=== PATIENT | male | born 1950 | race Caucasian/White ===

== ENCOUNTER 2024-10-05 17:26 | Inpatient (IN) | payer OTHER ==
[~2024-10-05] VITALS: Ht 188 cm; Wt 88.5 kg
[2024-10-05] MEDS ORDERED: LORAZEPAM 2 MG/1 ML VIAL ONE (17:43)
[2024-10-05] MEDS ORDERED: diphenhydrAMINE 50 MG/1 ML VIAL ONE (17:43)
[2024-10-05] MEDS ORDERED: HALOPERIDOL LACTATE 5 MG/1 ML VIAL ONE ×2 (17:44→19:39)
[2024-10-05] MEDS: diphenhydrAMINE 50 MG/1 ML VIAL IM ONE (17:51)
[2024-10-05] MEDS: LORAZEPAM 2 MG/1 ML VIAL IM ONE (17:51)
[2024-10-05] MEDS: HALOPERIDOL LACTATE 5 MG/1 ML VIAL IM ONE ×2 (17:51→19:48)
[2024-10-05 17:54] LABS: BASOPHILS % (AUTO) 0.8 % (0.0-2.0); EOSINOPHILS % (AUTO) 0.5 % (0.0-7.0); HEMATOCRIT 42.6 % (36.7-47.1); HEMOGLOBIN 14.1 g/dL (12.5-16.3); LYMPHOCYTES # (AUTO) 1.1 K/uL (0.8-4.8); LYMPHOCYTES % (AUTO) 19.2 % (20.5-51.5); MEAN CORPUSCULAR HEMOGLOBIN 29.8 uug (23.8-33.4); MEAN CORPUSCULAR HGB CONC 33 g/dL (32.5-36.3); MEAN CORPUSCULAR VOLUME 89.9 fL (73.0-96.2); MONOCYTES # (AUTO) 0.4 K/uL (0.1-1.30); MONOCYTES % (AUTO) 7.2 % (0.0-11.0); NEUTROPHILS # (AUTO) 4.3 K/uL (1.8-8.9); NEUTROPHILS % (AUTO) 72.3 % (38.5-71.5); PLATELET COUNT (AUTO) 260 K/uL (152-348); RED BLOOD CELL COUNT(AUTO) 4.74 MIL/uL (4.06-5.63); RED CELL DISTRIBUTION WIDTH 15.3 % (12.1-16.2); WHITE BLOOD COUNT (AUTO) 5.9 K/uL (3.6-10.2)
[2024-10-05 18:00] LABS: DIFFERENTIAL COMMENT 1
[2024-10-05 18:03] LABS: CALCIUM 9.1 mg/dL (8.5-10.1); CARBON DIOXIDE 30 mmol/L (21-32); CHLORIDE 105 mmol/L (98-107); GLUCOSE 124 mg/dL (74-106); POTASSIUM 4.1 mmol/L (3.5-5.1); SODIUM SERUM 141 mmol/L (136-145); UREA NITROGEN, BLOOD 14 mg/dL (7-18)
[2024-10-05] MEDS ORDERED: LORA-259 PO (23:59)
[2024-10-05] MEDS ORDERED: CHOL2000 PO (23:59)
[2024-10-05] MEDS ORDERED: ACET-3117 PO (23:59)
[2024-10-05] MEDS ORDERED: OLAN10TA73 PO (23:59)
[2024-10-05] MEDS ORDERED: THIA100T74 PO (23:59)
[2024-10-05] MEDS ORDERED: CARB100C9 PO (23:59)
[2024-10-05] MEDS ORDERED: CRAN450T9 PO (23:59)
[2024-10-05] MEDS ORDERED: ENOX40DI SQ (23:59)
[2024-10-05] MEDS ORDERED: CARB200C6 PO (23:59)
[2024-10-05] MEDS ORDERED: METO25TA6 PO (23:59)
[2024-10-05] MEDS ORDERED: CYAN-51 PO (23:59)
[2024-10-05] MEDS ORDERED: PANT40TA49 PO (23:59)
[2024-10-05] MEDS ORDERED: NITR50CA PO (23:59)
[2024-10-05] MEDS ORDERED: TAMS-3 PO (23:59)
[2024-10-05] MEDS ORDERED: BISA-79 PO (23:59)
[2024-10-05] MEDS ORDERED: CLOP75TA33 PO (23:59)
[2024-10-05] MEDS ORDERED: MAGN400C PO (23:59)
[2024-10-05] MEDS ORDERED: CALC300T4 PO (23:59)
[2024-10-06 00:15] VITALS: BP 129/75; TEMP 98.2; O2SAT 97
[2024-10-06] MEDS ORDERED: LORAZEPAM 1 MG TABLET PO PRN (00:15)
[2024-10-06] MEDS ORDERED: MAGNESIUM HYDROXIDE 30 ML LIQUID UDC PO PRN (00:15)
[2024-10-06] MEDS ORDERED: TEMAZEPAM 7.5 MG CAPSULE PO PRN (00:15)
[2024-10-06] MEDS ORDERED: MAG HYDROX/AL HYDROX/SIMETH 30 ML LIQUID UDC PO PRN (00:15)
[2024-10-06] MEDS: BLOOD SUGAR DIAGNOSTIC 1 EACH STRIP VI ONE (00:43)
[2024-10-06 08:12] VITALS: BP 110/67; TEMP 98; O2SAT 96
[2024-10-06] MEDS: LORAZEPAM 1 MG TABLET PO PRN (14:50)
[2024-10-06 16:14] VITALS: BP 105/74; TEMP 98.1; O2SAT 96
[2024-10-06] MEDS: DIVALPROEX 125 MG TABLET.DR PO SCH (18:03)
[2024-10-06 20:00] VITALS: BP 108/76; TEMP 97.2; O2SAT 100
[2024-10-06] MEDS: OLANZAPINE 2.5 MG TABLET PO SCH (20:08)
[2024-10-06] MEDS: TEMAZEPAM 7.5 MG CAPSULE PO PRN (22:31)
[2024-10-07 08:22] VITALS: BP 122/81; TEMP 97.1; O2SAT 100
[2024-10-07] MEDS ORDERED: Medication Not On Formulary EA (Cholecalciferol (Vitamin D3) (Vitamin D3) 1 CAP) PO SCH (09:00)
[2024-10-07] MEDS ORDERED: BISACODYL 5 MG TABLET.DR PO PRN (09:00)
[2024-10-07] MEDS: CHOLECALCIFEROL 1,000 UNIT TABLET PO SCH (09:33)
[2024-10-07] MEDS: THIAMINE HCL 100 MG TABLET PO SCH (09:34)
[2024-10-07] MEDS: CYANOCOBALAMIN 1,000 MCG TABLET PO SCH (09:34)
[2024-10-07] MEDS: CLOPIDOGREL 75 MG TABLET PO SCH (09:34)
[2024-10-07] MEDS: METOPROLOL TARTRATE 25 MG TABLET PO SCH (09:35)
[2024-10-07 09:41] LABS: CALCIUM 8.9 mg/dL (8.5-10.1); CARBON DIOXIDE 29 mmol/L (21-32); CHLORIDE 104 mmol/L (98-107); GLUCOSE 120 mg/dL (74-106); POTASSIUM 3.9 mmol/L (3.5-5.1); SODIUM SERUM 140 mmol/L (136-145); UREA NITROGEN, BLOOD 16 mg/dL (7-18)
[2024-10-07] MEDS: PANTOPRAZOLE SODIUM 40 MG TABLET.DR PO SCH (09:41)
[2024-10-07 16:20] VITALS: BP 111/74; TEMP 98; O2SAT 100
[2024-10-07 20:00] VITALS: BP 114/68; TEMP 98; O2SAT 98
[2024-10-07] MEDS: TAMSULOSIN HCL 0.4 MG CAP.SR.24H PO SCH (21:09)
[2024-10-07] MEDS: MAGNESIUM OXIDE 400 MG TABLET PO SCH (21:09)
[2024-10-08 08:18] VITALS: BP 135/80; TEMP 98; O2SAT 99
[2024-10-08] MEDS: DIVALPROEX 250 MG TABLET.DR PO SCH (09:16)
[2024-10-08 16:20] VITALS: BP 163/100; TEMP 97.3; O2SAT 100
[2024-10-08 17:26] VITALS: BP 149/96
[2024-10-08 20:00] VITALS: BP 100/60; TEMP 98.5; O2SAT 96
[2024-10-08] MEDS: OLANZAPINE 5 MG TABLET PO SCH (20:31)
[2024-10-09 10:20] VITALS: BP 122/81; TEMP 97.7; O2SAT 100
[2024-10-09 16:13] VITALS: BP 146/85; TEMP 97.4; O2SAT 98
[2024-10-09 19:53] VITALS: BP 143/68; TEMP 97.3; O2SAT 98
[2024-10-09] MEDS: ATORVASTATIN 10 MG TABLET PO SCH (20:49)
[2024-10-09 23:39] LABS: *BILIRUBIN,URIN NEGATIVE (NEGATIVE); *BLOOD, URINE NEGATIVE (NEGATIVE); *CLARITY,URINE SLIGHTLY CLOUDY (CLEAR); *COLOR,URINE YELLOW (YELLOW); *KETONES,URINE NEGATIVE (NEGATIVE); *PROTEIN,URINE NEGATIVE (NEGATIVE); *UROBILINOGEN,URINE 0.2 E.U./dl (NORMAL); LEUKOCYTE ESTERASE ,URINE 2+ (NEGATIVE); NITRITE, URINE POSITIVE (NEGATIVE); UGLUCOSE NEGATIVE (NEGATIVE)
[2024-10-09] MEDS: LORAZEPAM 0.5 MG TABLET PO PRN (23:53)
[2024-10-09 23:59] LABS: RBC,URINE 0-3 /HPF (0-3); WBC,URINE 50-80 /HPF (0-3)
[2024-10-10 00:01] LABS: BACTERIA,URINE MANY /HPF (NONE SEEN)
[2024-10-10 00:03] LABS: SQUAMOUS EPITHELIAL CELL,UR FEW /HPF (NONE SEEN)
[2024-10-10 08:14] VITALS: BP 105/45; TEMP 98.3; O2SAT 100
[2024-10-10] MEDS: NITROFURANTOIN/NITROFURAN MAC 100 MG CAPSULE PO SCH (11:06)
[2024-10-10] MEDS: ACETAMINOPHEN 325 MG TABLET PO PRN (13:12)
[2024-10-10 16:18] VITALS: BP 112/56; TEMP 97.5; O2SAT 100
[2024-10-10 20:00] VITALS: BP 109/72; TEMP 98; O2SAT 100
[2024-10-11 07:59] VITALS: BP 110/75; TEMP 98; O2SAT 99
[2024-10-11 08:31] VITALS: BP 110/75
== END 2024-10-11 11:30 | DRG 885 ==
LOC: ER 17:26 → GPS 10-06 00:10
PROVIDERS: ADMIT Psychiatry & Neurology Psychosomatic Medicine; ATTEND Internal Medicine
DX: F29 Unspecified psychosis not due to a substance or known physiological condition (principal); G93.41 Metabolic encephalopathy; F03.B18 Unspecified dementia, moderate, with other behavioral disturbance; N39.0 Urinary tract infection, site not specified; F03.B4 Unspecified dementia, moderate, with anxiety; F03.B3 Unspecified dementia, moderate, with mood disturbance; Z86.73 Personal history of transient ischemic attack (TIA), and cerebral infarction without residual deficits; E78.5 Hyperlipidemia, unspecified; Z81.8 Family history of other mental and behavioral disorders; Z88.8 Allergy status to other drugs, medicaments and biological substances; R94.31 Abnormal electrocardiogram [ECG] [EKG]; F32.A Depression, unspecified; I10 Essential (primary) hypertension
CPT/HCPCS: 36415; 70450; 83735; 85025; C1758; J1200; J1630; J2060; J3490

== ENCOUNTER 2025-07-14 21:12 | Inpatient (IN) | payer MEDICARE, OTHER ==
[~2025-07-14] VITALS: Ht 185.4 cm; Wt 75.7 kg
[~2025-07-14 21:12] MED LIST: ACET-3117 PO; BISA-79 PO; CALC300T4 PO; CHOL2000 PO; CLOP75TA33 PO; CYAN-51 PO; ENOX40DI SQ; MAGN400C PO; METO25TA6 PO; NITR50CA PO; PANT40TA49 PO; TAMS-3 PO; THIA100T74 PO
[2025-07-14 22:13] LABS: PLATELET COUNT (AUTO) 336 K/uL (152-348); RED BLOOD CELL COUNT(AUTO) 5.14 MIL/uL (4.06-5.63); RED CELL DISTRIBUTION WIDTH 14.1 % (12.1-16.2); WHITE BLOOD COUNT (AUTO) 6.2 K/uL (3.6-10.2)
[2025-07-14] MEDS: IV NORMAL SALINE 500 ML BAG IV ONE (22:19)
[2025-07-14 22:21] LABS: CREATININE 0.7 mg/dL (0.6-1.3); SODIUM SERUM 141 mmol/L (136-145); UREA NITROGEN, BLOOD 21 mg/dL (7-18)
[2025-07-14 22:32] LABS: ASPARTATE AMINOTRANSFERASE 14 U/L (15-37); TOTAL PROTEIN, SERUM 7.5 g/dL (6.4-8.2)
[2025-07-14 22:52] LABS: *BILIRUBIN,URIN NEGATIVE (NEGATIVE); *BLOOD, URINE NEGATIVE (NEGATIVE); *CLARITY,URINE SLIGHTLY CLOUDY (CLEAR); *COLOR,URINE YELLOW (YELLOW); *KETONES,URINE TRACE (NEGATIVE); *PROTEIN,URINE NEGATIVE (NEGATIVE); *UROBILINOGEN,URINE 0.2 E.U./dl (NORMAL); LEUKOCYTE ESTERASE ,URINE 1+ (NEGATIVE); NITRITE, URINE NEGATIVE (NEGATIVE); UGLUCOSE NEGATIVE (NEGATIVE)
[2025-07-14 23:09] LABS: SQUAMOUS EPITHELIAL CELL,UR FEW /HPF (NONE SEEN)
[2025-07-15] VITALS: BP 104/65
[2025-07-15] MEDS ORDERED: ACETAMINOPHEN 325 MG TABLET PO PRN (00:30)
[2025-07-15] MEDS ORDERED: ONDANSETRON 4 MG/2 ML VIAL IV PRN (00:30)
[2025-07-15] MEDS ORDERED: REMEDY ESSENTIAL ZINC PASTE 113 GM TP PRN (00:30)
[2025-07-15] MEDS ORDERED: MAGNESIUM HYDROXIDE 30 ML LIQUID UDC PO PRN (00:30)
[2025-07-15] MEDS ORDERED: HYDROCODONE/APAP 5-325MG TABLET PO PRN (00:30)
[2025-07-15 01:25] VITALS: BP 91/42; TEMP 97.5; O2SAT 98
[2025-07-15] MEDS: IV NS 1000 ML 1,000 ML IV PRN (01:33)
[2025-07-15] MEDS ORDERED: CEFTRIAXONE /D5W 50ML IVPB **ER PYXIS IV ONE (03:52)
[2025-07-15 05:25] VITALS: BP 98/53; TEMP 97.9; O2SAT 93
[2025-07-15] MEDS: PANTOPRAZOLE SODIUM 40 MG TABLET.DR PO SCH (06:52)
[2025-07-15] MEDS ORDERED: ACET325T53 PO (11:27)
[2025-07-15] MEDS ORDERED: ATOR10TA PO (11:27)
[2025-07-15] MEDS ORDERED: CARB200T8 PO (11:53)
[2025-07-15] MEDS ORDERED: D-MANNOSE PO (11:57)
[2025-07-15] MEDS ORDERED: DIVA-78 PO (11:58)
[2025-07-15] MEDS ORDERED: DOCU100C36 PO (11:59)
[2025-07-15] MEDS ORDERED: GABA-532 PO (12:01)
[2025-07-15] MEDS ORDERED: FOSF3PAC PO (12:01)
[2025-07-15] MEDS ORDERED: LORA-258 PO (12:02)
[2025-07-15] MEDS ORDERED: OLAN2.5T27 PO (12:03)
[2025-07-15] MEDS ORDERED: MULT-213 PO (12:03)
[2025-07-15] MEDS ORDERED: RIVA10TA PO (12:04)
[2025-07-15 12:25] VITALS: BP 115/72; TEMP 98; O2SAT 97
[2025-07-15 15:39] VITALS: BP 110/64; TEMP 97.9; O2SAT 98
[2025-07-15 19:45] VITALS: BP 108/68; TEMP 98.6; O2SAT 98
[2025-07-16 05:45] VITALS: BP 108/62; TEMP 98.4; O2SAT 96
[2025-07-16 07:00] LABS: PLATELET COUNT (AUTO) 368 K/uL (152-348); RED BLOOD CELL COUNT(AUTO) 4.49 MIL/uL (4.06-5.63); RED CELL DISTRIBUTION WIDTH 14.4 % (12.1-16.2); WHITE BLOOD COUNT (AUTO) 6.6 K/uL (3.6-10.2)
[2025-07-16 07:16] LABS: ASPARTATE AMINOTRANSFERASE 10 U/L (15-37); CREATININE 0.6 mg/dL (0.6-1.3); SODIUM SERUM 141 mmol/L (136-145); TOTAL PROTEIN, SERUM 6.8 g/dL (6.4-8.2); UREA NITROGEN, BLOOD 16 mg/dL (7-18)
[2025-07-16] MEDS ORDERED: LORAZEPAM 0.5 MG TABLET PO PRN (11:15)
[2025-07-16] MEDS ORDERED: BISACODYL 5 MG TABLET.DR PO PRN (11:15)
[2025-07-16] MEDS: CARBAMAZEPINE 200 MG TABLET PO SCH (11:42)
[2025-07-16] MEDS: CLOPIDOGREL 75 MG TABLET PO SCH (11:45)
[2025-07-16] MEDS: RIVAROXABAN 10 MG TABLET PO SCH (11:46)
[2025-07-16 12:02] VITALS: BP 119/73; TEMP 97.6; O2SAT 94
[2025-07-16] MEDS: DIVALPROEX 500 MG TABLET.DR PO SCH (13:49)
[2025-07-16 16:07] VITALS: BP 113/71; TEMP 97.7; O2SAT 97
[2025-07-16] MEDS: GABAPENTIN 100 MG CAPSULE PO SCH (16:12)
[2025-07-16] MEDS: DOCUSATE SODIUM 100 MG CAPSULE PO SCH (16:12)
[2025-07-16 19:20] VITALS: BP 154/79; TEMP 98.8; O2SAT 99
[2025-07-16] MEDS: TAMSULOSIN HCL 0.4 MG CAP.SR.24H PO SCH (20:46)
[2025-07-17] MEDS: OLANZAPINE 2.5 MG TABLET PO SCH (08:31)
[2025-07-17 12:00] VITALS: BP 114/62; TEMP 97.6; O2SAT 100
[2025-07-17] MEDS ORDERED: DOCU-141 PO (14:14)
[2025-07-17] MEDS ORDERED: CEPH500C2 PO (14:14)
[2025-07-17] MEDS ORDERED: ACET325T53 PO (14:14)
[2025-07-17] MEDS ORDERED: MAGN400O6 PO (14:14)
[2025-07-17 16:00] VITALS: BP 100/49; TEMP 97.9; O2SAT 97
== END 2025-07-17 16:25 | DRG 871 ==
LOC: ER 21:12 → MEDSURG3 23:59
PROVIDERS: ADMIT Nurse Practitioner Acute Care; ATTEND Internal Medicine
DX: A41.9 Sepsis, unspecified organism (principal); G92.8 Other toxic encephalopathy; N39.0 Urinary tract infection, site not specified; D68.59 Other primary thrombophilia; F03.94 Unspecified dementia, unspecified severity, with anxiety; F03.93 Unspecified dementia, unspecified severity, with mood disturbance; N40.0 Benign prostatic hyperplasia without lower urinary tract symptoms; C61 Malignant neoplasm of prostate; G40.909 Epilepsy, unspecified, not intractable, without status epilepticus; G93.89 Other specified disorders of brain; F25.9 Schizoaffective disorder, unspecified; H70.91 Unspecified mastoiditis, right ear; E88.09 Other disorders of plasma-protein metabolism, not elsewhere classified; R41.89 Other symptoms and signs involving cognitive functions and awareness; F32.A Depression, unspecified; Z79.02 Long term (current) use of antithrombotics/antiplatelets; M15.9 Polyosteoarthritis, unspecified; I11.9 Hypertensive heart disease without heart failure; I50.9 Heart failure, unspecified; E78.5 Hyperlipidemia, unspecified; Z86.69 Personal history of other diseases of the nervous system and sense organs; Z79.899 Other long term (current) drug therapy; Z79.01 Long term (current) use of anticoagulants; Z86.73 Personal history of transient ischemic attack (TIA), and cerebral infarction without residual deficits
CPT/HCPCS: 36415; 70450; 71045; 80164; 83605; 83735; 84100; 84153; 84443; 84484; 85025; 87086; 93005; A4663; A6209; A6213; G0378; J0696; J7040